=== PATIENT | female | born 1985 | race Caucasian/White ===

== ENCOUNTER → 2017-11-13 10:26 | Outpatient (CLI) | payer BC, SELFPAY ==
[2017-11-13 11:09] LABS: Basophils # 0.1 K/mm3 (0-0.2); Basophils % 0.9 % (0.1-2.0); Eosinophils # 0.1 K/mm3 (0.0-0.4); Hematocrit 44.3 % (37.0-47.0); Hemoglobin 14.3 g/dL (12.2-16.2); Lymphocytes # 1.5 K/mm3 (0.7-4.5); Lymphocytes % 21.6 K/mm3 (10-50); Mean Corpuscular HGB Conc 32.2 g/dL (31.8-35.4); Mean Corpuscular Volume 93.3 fl (81-99); Mean Platelet Volume 7.4 fl (7.4-10.4); Monocytes # 0.4 K/mm3 (0.1-1.0); Monocytes % 5.3 % (1.7-9.3); Neutrophils % 71.1 % (37.0-80.0); Platelet Count 374 K/mm3 (142-424); Red Blood Count 4.75 M/mm3 (4.20-5.40); Red Cell Distribution Width 13.2 % (11.5-17.5)
[2017-11-14 10:56] LABS: Hepatitis B Surface Antigen Negative (Negative); Hepatitis C Antibody <0.1 s/co ratio (0.0-0.9); Rapid Plasma Reagin Ab Titer Non Reactive (NonRea<1:1); Rubella Antibodies, IgG 4.44 index (Immune >0.99)
== END ==
PROVIDERS: Family Provider Internal Medicine Adolescent Medicine; PCP Internal Medicine Adolescent Medicine; Visit Provider Nurse Practitioner Obstetrics & Gynecology
DX: Z34.90 Encounter for supervision of normal pregnancy, unspecified, unspecified trimester (principal)
CPT/HCPCS: 85025; 86592; 86762; 86850; 87340; 87380

== ENCOUNTER → 2017-11-20 10:19 | Outpatient (CLI) | payer BC, SELFPAY ==
--- NOTE | 2017-11-20 10:25 | US_ITS ---
US OB transvaginal HISTORY: Evaluate gestational age, early OB ultrasound ITS.REASON: DATES ORDERING PHYSICIAN: Scottie Daniels MD PATIENT AGE: 32 years COMPARISON: None FINDINGS: Uterus is retroverted. There is a gestational sac within the endometrium with a yolk sac noted and a possible 2 mm pole. No heart tones demonstrated at this time. It may be too early to see heart tones. Follow-up recommended. There is a small amount fluid in the cul-de-sac. 1 similar left ovarian cyst noted areas small amount fluid around the right ovary. IMPRESSION: 1. Intrauterine gestational sac with yolk sac and possible small pole measuring 2 mm which would correspond to gestational age of 5 weeks 6 days with an estimated due date of 07/17/2018. This however is questionable. No heart tones demonstrated. Recommend follow-up ultrasound and beta hCG to confirm viability. 2. Small amount of fluid in right adnexa. 12 mm left ovarian cyst.
== END ==
LOC: RAD 10:20
PROVIDERS: Family Provider Internal Medicine Adolescent Medicine; PCP Internal Medicine Adolescent Medicine; Visit Provider Nurse Practitioner Obstetrics & Gynecology
DX: O26.841 Uterine size-date discrepancy, first trimester (principal)
CPT/HCPCS: 76830

== ENCOUNTER → 2017-11-29 13:45 | Outpatient (CLI) | payer BC, SELFPAY ==
--- NOTE | 2017-11-29 13:46 | US_ITS ---
US OB transvaginal HISTORY: Check early gestation, evaluate age and viability ITS.REASON: Recheck Dates ORDERING PHYSICIAN: Scottie Daniels MD PATIENT AGE: 32 years COMPARISON: None FINDINGS: An intrauterine gestational sac is present with a pole with a crown-rump length of 0.65cm correlating to gestational age of 6 weeks 4 days. heart tones are present with an FHR of 122 bpm's. Yolk sac is noted. Adnexa: 1.2 cm left ovarian cyst with bilateral ovarian follicles. Minimal amount fluid in the right adnexa.. IMPRESSION: Live intrauterine gestation with an estimated gestational age of 6 weeks 4 days and estimated due date of 07/21/2018
== END ==
PROVIDERS: Family Provider Internal Medicine Adolescent Medicine; PCP Internal Medicine Adolescent Medicine; Visit Provider Nurse Practitioner Obstetrics & Gynecology
DX: O26.841 Uterine size-date discrepancy, first trimester (principal)
CPT/HCPCS: 76830

== ENCOUNTER → 2019-03-08 11:13 | Outpatient (CLI) | payer BC, SELFPAY ==
--- NOTE | 2019-03-08 11:18 | XR_ITS ---
XR hip LT 2-3V w/pelvis Ordering Physician: Renetta Williamson APRN Patient Age: 33 years: Female HISTORY: ITS.REASON: LT HIP PAIN Recent fall with left hip and knee pain TECHNIQUE: AP and frog-leg view left hip along with AP pelvis. COMPARISON :-17 abdominal series FINDINGS LEFT HIP is intact with no fracture evident. The femoral head and neck appear intact. Hip joint spaces well-maintained bilaterally. Bones well mineralized AP PELVIS:. Single AP view of the pelvis shows fairly symmetrical appearance to the hips. Appearance unchanged since 2017... Hip joint spaces are well-maintained bilaterally. Sacrum, SI joints, iliac bone, pubis unremarkable.. There is a there were bilateral tubal ligation clips on the 2017 exam.- These are no longer evident IMPRESSION: Negative left hip. No acute findings Osseous pelvis intact. Hips intact bilateral
--- NOTE | 2019-03-08 11:18 | XR_ITS ---
XR knee LT 3V Ordering Physician: Renetta Williamson APRN Patient Age: 33 years: Female HISTORY: ITS.REASON: LT KNEE PAIN Recent fall left knee and left hip pain TECHNIQUE: 3 views left knee COMPARISON :None FINDINGS The left knee intact with no fracture nor dislocation. No joint effusion. Bones well mineralized. No lesions. The Slightly prominent medial femoral condyle versus lateral femoral condyle and may merely projectional. With suggestion of subtle more inferior prominence and contour the medial femoral condyle the lateral condyle. Again likely Exaggerated by subtle rotation on the frontal view although could reflect minor anatomical variation Femoral condyles appear smooth with no osteochondral defect. The lateral femoral condyle unremarkable IMPRESSION: ... Left knee intact with no acute findings. No fracture nor dislocation.. No joint effusion Minor comments in text
== END ==
PROVIDERS: PCP Nurse Practitioner Family; Visit Provider Nurse Practitioner Family
DX: M25.562 Pain in left knee (principal); M25.552 Pain in left hip; G89.29 Other chronic pain
CPT/HCPCS: 73502; 73562

== ENCOUNTER 2019-03-29 15:00 | Outpatient (RCR) | payer BC, SELFPAY ==
--- NOTE | 2019-03-20 13:42 | HMH.PTOPEV ---
PT Outpatient Evaluation Rehab PT Outpatient Evaluation Start: 03/20/19 13:05 Freq: Status: Active Protocol: Document 03/20/19 13:31 MERISSALISA (Rec: 03/20/19 13:42 MERISSAWILLIANRENUKA [id number]) Electronically Signed By Jarrett Estevez, PT 03/20/19 13:31 Outpatient Therapy Subjective History Subjective History Patient is a 33 year old female presenting to outpatient PT with reports of sub-acute L Hip/knee pain starting approximately 2 months ago of insidious onset. Most recent diagnostics negative. Knee pain specific to medial/lateral joint line and popliteal fossa. Hip pain specific to anterior hip. Comorbidities include hx of cholecystectomy. Chief Complaint Pain Symptom Type Ache,Sharp,Dull Symptoms Relieved By Rest/Positioning,Prescription Meds Symptoms Aggravated By Sitting,Standing,Bending/ Stooping,Physical Activity, Walking Prior Functional Limitations None Current Functional Limitations Housework,Standing,Sitting, Squatting,Recreation Activity, Walking,Stairs,Bending/ Stooping Symptom Description Intermittent Level of pain today (0-10) 2 Pain scale - at its best (0-10) 0 Pain scale - at its worst (0-10) 6 Hip/Knee Eval Gait Observation General Gait Pattern Observation No Deviations/Normal Assistive Device Assistive Devices None / NA Palpation Tenderness left Knee Palpation Finding Tenderness Knee Palpation Overall Comment L med/lat joint line, popliteal fossa, anterior hip MMT right Hip Strength Reason Not Measured WFL Knee Strength Reason Not Measured WFL left Hip Flexion Strength Grade 4- Good- Hip Abduction Strength Grade 4- Good- Hip Adduction Strength Grade 4- Good- Hip Extension Strength Grade 4- Good- Hip External Rotation Strength Grade 3+ Fair+ Hip Internal Rotation Strength Grade 3+ Fair+ Knee Extension Strength Grade 4- Good- Knee Flexion Strength Grade 4 Good ROM bilateral Hip ROM Reason Not Measured Within Functional Limits Knee ROM Reason Not Measured Within Functional Limits Special Tests Hip Lyndsey Test Positive Left Hip Piriformis Test Positive Left Alberto Test Positive Knee Anterior Drawer Test
== END 2019-03-29 15:05 | disposition home or self-care (01) ==
LOC: PT 15:00
PROVIDERS: Visit Provider Nurse Practitioner Family
DX: M25.562 Pain in left knee (principal); M25.552 Pain in left hip
CPT/HCPCS: 97010; 97014; 97033; 97035; 97110; 97163; G0283

== ENCOUNTER → 2020-05-01 15:32 | Outpatient (CLI) | payer BC, SELFPAY ==
[2020-05-03 11:54] LABS: Covid-19 Nasal PCR Sendout UK DETECTED
== END ==
PROVIDERS: PCP Internal Medicine Adolescent Medicine; Visit Provider Internal Medicine Adolescent Medicine
DX: Z20.828 Contact with and (suspected) exposure to other viral communicable diseases (principal)
CPT/HCPCS: U0003

== ENCOUNTER 2020-05-30 21:04 | Emergency (ER) | payer BC, SELFPAY ==
[2020-05-30 21:19] VITALS: BP 178/109; PULSE 66; RESP 18; TEMP 37.2; O2SAT 97; BMI 26.2
--- NOTE | 2020-05-30 21:33 | CT_ITS ---
PROCEDURE: CT HEAD/BRAIN WO CON CLINICAL INDICATION: dizziness, nausea, some blurred vision COMPARISON: No exams were available for comparison TECHNIQUE: Axial images obtained. All CT scans at the facility use one or more dose reduction, viz: automated exposure control, ma/kV adjustment per patient size (including targeted exams where dose is matched to indication, i.e. head), or iterative reconstruction technique. FINDINGS: No midline shift, mass effect, intracranial hemorrhage, hydrocephalus, or extra-axial fluid collection is evident. The calvarium has an unremarkable appearance. No mastoid effusion. No sinus air-fluid level. IMPRESSION: No acute intracranial finding Dictated by: Dr. Elio Wagoner MD 05/31/2020 09:06 Dr. Elio Wagoner MD in [place] 05/31/2020 09:06
--- NOTE | 2020-05-30 21:33 | ECG_ITS ---
APPROVED REPORT Exam: Resting ECG HR:65 bpm ECG Measurements Heart Rate 65 AXES AL 120 P 30 QRSd 80 QRS 21 QT 400 T 38 QTc 416 <Conclusion> Normal sinus rhythm Normal ECG Electronically signed by : Mich Gottlieb, 05/31/2020 17:23:57
--- NOTE | 2020-05-30 21:33 | XR_ITS ---
PROCEDURE: XR CHEST PORTABLE CLINICAL HISTORY: chest pain COMPARISON: CR CXR CHEST(2 VIEWS-NOT PORTABLE) from 04/02/2015 CR CXR CHEST(2 VIEWS-NOT PORTABLE) from 05/18/2016 CR Chest from 04/28/[address] angio chest from 04/28/2019 FINDINGS: The cardiomediastinal silhouette and pulmonary vascularity are within normal limits. The lungs are clear without infiltrates, suspicious nodules, or pleural effusions. No acute bony abnormalities. IMPRESSION: No acute findings. Dictated by: Dr. Elio Wagoner MD 05/31/2020 09:07 Dr. Elio Wagoner MD in [place] 05/31/2020 09:07
[2020-05-30 21:44] LABS: Basophils % 0.1 % (0.1-2.0); Eosinophils # 0.1 K/mm3 (0.0-0.4); Eosinophils % 0.9 % (0.1-12.0); Hemoglobin 15.3 g/dL (12.2-16.2); Lymphocytes # 1.2 K/mm3 (0.7-4.5); Lymphocytes % 8.8 % (10-50); Mean Corpuscular HGB Conc 33.2 g/dL (31.8-35.4); Mean Corpuscular Hemoglobin 31.3 pg (27.0-31.2); Mean Corpuscular Volume 94.3 fl (81-99); Mean Platelet Volume 7.9 fl (7.4-10.4); Monocytes # 0.4 K/mm3 (0.1-1.0); Monocytes % 2.6 % (1.7-9.3); Neutrophils # 11.8 K/mm3 (1.8-7.8); Neutrophils % 87.6 % (37.0-80.0); Platelet Count 442 K/mm3 (142-424); Red Blood Count 4.88 M/mm3 (4.20-5.40); Red Cell Distribution Width 12.9 % (11.5-17.5); White Blood Count 13.5 K/mm3 (4.8-10.8)
[2020-05-30 21:54] LABS: Anion Gap 17.9 mEq/L (5-15); Blood Urea Nitrogen 10 mg/dl (7-17); Carbon Dioxide 27 mmol/L (22.0-30.0); Chloride 98 mmol/L (98-107); Creatinine Clearance Estimated 121 mL/min (50-200); Potassium 3.9 mmoL/L (3.5-5.1); Sodium 139 mmol/L (136-145)
[2020-05-30 21:55] LABS: Alanine Aminotransferase 14 U/L (12-78); Albumin Level 5.1 g/dl (3.5-5.0); Albumin/Globulin Ratio 1.3 (1.1-1.8); Alkaline Phosphatase 98 U/L (38-126); Aspartate Amino Transferase 30 U/L (14-36); Bilirubin,Total 0.3 mg/dl (0.2-1.3); Calcium 9.9 mg/dl (8.4-10.2); Estimated Glomerular Filt Rate 113 ml/min (>60); GFR (African American) 137 ML/MIN (>60); Globulin 3.8 g/dL (1.3-3.2); Glucose 130 mg/dl (74-100); Total Protein,Serum 8.9 g/dl (6.3-8.2)
[2020-05-30 21:58] LABS: MANUAL DIFFERENTIAL MANUAL DIFFERENTIAL (MANUAL DIFF)
[2020-05-30 22:07] LABS: Troponin I < 0.01 ng/ml (0.00-0.034)
[2020-05-30 22:09] LABS: Lymphocytes % 11 % (10-50); Neutrophils % 85 % (42-76); Platelet Estimate Normal; RBC Morphology Normal; Total Cells Counted 100
[2020-05-30 22:18] VITALS: BP 135/88; PULSE 51; RESP 18; O2SAT 95
--- NOTE | 2020-05-30 23:01 | HMH.EDCP ---
ED Disposition Clinical Impression: Vertigo Chest pain Qualifiers: Chest pain type: unspecified Qualified Code(s): R07.9 - Chest pain, unspecified Disposition: Home, Self-Care Condition on Discharge: Good Instructions: Dizziness, Nonvertigo Additional Instructions: call pcp for follow up Referrals: Jose Guadalupe Patton MD [Primary Care Provider] - - Critical Care Critical Care Time: No Attestation: On 05/30/20, the high probability of a clinically significant, sudden or life threatening deterioration of the following system(s) required my full and direct attention, intervention and personal management. The time I documented below is in addition to time spent performing reported procedures but includes the following listed in this critical care notation. Medical Decision Making - Medical Records Medical records reviewed: Yes: I reviewed the patient's medical records. - Darian Inquiry Pt receiving controlled substance: No Vital Signs: 05/30/20 21:19 05/30/20 22:18 Temperature 99 F Temperature Source Oral Pulse Rate [Right] 66 51 L Respiratory Rate 18 18 Blood Pressure [Right Arm] 178/109 H 135/88 Blood Pressure Mean [Right Arm] 132 103 Blood Pressure Source [Right Arm] Automatic Cuff Blood Pressure Position [Right Arm] Sitting 02 Sat by Pulse Oximetry 97 95 Oxygen Delivery Method Room Air Room Air - Lab Data Lab results reviewed: Yes: I reviewed the patient's lab results. Lab Results 05/30/20 21:17: WBC 13.5 H, RBC 4.88, Hgb 15.3, Hct 46.0, MCV 94.3, MCH 31.3 H, MCHC 33.2, RDW 12.9, Plt Count 442 H, MPV 7.9, Neut % (Auto) 87.6 H, Lymph % (Auto) 8.8 L, Mckinley % (Auto) 2.6, Eos % (Auto) 0.9, Baso % (Auto) 0.1, Neut # (Auto) 11.8 H, Lymph # (Auto) 1.2, Mckinley # (Auto) 0.4, Eos # (Auto) 0.1, Baso # (Auto) 0.0, Total Counted 100, Neutrophils % (Manual) 85 H, Band Neutrophils % 4.0, Lymphocytes % (Manual) 11, Platelet Estimate Normal, RBC Morphology Normal 05/30/20 21:17: Sodium 139, Potassium 3.9, Chloride 98, Carbon Dioxide 27, Anion Gap 17.9 H, BUN 10, Creatinine 0.60, Estimated Creat Clear 121, Estimated GFR 113, Est GFR ( Amer) 137, Glucose 130 H, Calcium 9.9, Total Bilirubin 0.3, AST 30, ALT 14, Alkaline Phosphatase 98, Troponin I < 0.01, Total Protein 8.9 H, Albumin 5.1 H, Globulin 3.8 H, Albumin/Globulin Ratio 1.3 05/30/20 21:17: ESR 6 05/30/20 21:17: C-Reactive Protein 0.6 05/30/20 21:17: SARS-CoV-2 IgG Ab (Rapid) Negative, SARS-CoV-2 IgM Ab (Rapid) Negative 05/30/20 23:06: Urine Color Yellow, Urine Appearance Clear, Urine pH 6.5, Ur Specific [place] 1.010, Urine Protein Negative, Urine Glucose (UA) Negative, Urine Ketones Negative, Urine Blood Negative, Urine Nitrate Negative, Urine Bilirubin Negative, Urine Urobilinogen 0.2, Ur Leukocyte Esterase Negative, Urine WBC Occasional, Ur Squamous Epith Cells 5-10 Result diagrams: 05/30/20 21:17 05/30/20 21:17 Orders (Tests/Meds): ED MEDICATIONS Generic Name Dose Route Start Last Admin Trade Name Freq PRN Reason Stop Dose Admin Sodium Chloride 1,000 mls @ 999 mls/hr 05/30/20 21:45 05/30/20 21:36 Sod Chlor 0.9% 1000ml Bag IV 05/30/20 22:45 999 mls/hr .Q1H1M JAMIL Administration Discontinued Medications Generic Name Dose Route Start Last Admin Trade Name Freq PRN Reason Stop Dose Admin Aspirin 324 mg 05/30/20 21:34 05/30/20 21:36 Aspirin 81mg Chewable Tablet PO 05/30/20 21:35 324 mg ONCE ONE Administration ORDERS Category Date Time Status CT head/brain wo con Stat Cat Scan 05/30/20 21:33 Taken Chest XR -- portable [XR chest portable] Stat Exams 05/30/20 21:33 Taken Drug Screen,Urine Stat Lab 05/30/20 23:06 Received Troponin I Q3H Lab 05/31/20 00:45 Ordered Troponin I Q3H Lab 05/31/20 03:45 Ordered - Radiology Data #1 Image(s): Chest Image Reviewed: Yes I reviewed the patient's radiology image Preliminary Findings: Normal/NAD - CT Data CT Scan: Head Time Received: 23:[address] Reviewed:
[2020-05-30 23:03] LABS: Coronavirus 19 IgG Antibody Negative (Negative); Coronavirus 19 IgM Antibody Negative (Negative)
[2020-05-30 23:04] LABS: Erythrocyte Sedimentation Rate 6 mm/hr (0-20)
[2020-05-30 23:08] LABS: C-Reactive Protein 0.6 mg/L (0-4)
[2020-05-30 23:10] LABS: Microscopic, Urine URINE MICROSCOPIC (MICROSCOPIC)
[2020-05-30 23:12] LABS: Appearance,Urine CLEAR (Clear); Bilirubin,Urine Negative (Negative); Blood, Urine Negative (Negative); Color,Urine YELLOW (Yellow); Glucose,Urine (UA) Negative (Negative); Ketones,Urine Negative (Negative); Leukocyte Esterase,Urine Negative (Negative); Nitrate,Urine Negative (Negative); PH,Urine 6.5 (5.0-8.5); Protein,Urine Negative (Negative); Urobilinogen,Urine 0.2 EU/dl (0.2)
[2020-05-30 23:15] LABS: WBC,Urine Occasional #/hpf (0-3)
[2020-05-30 23:22] LABS: Amphetamine/Metha Screen,Urine Negative ng/ml (<1000)
[2020-05-30 23:23] LABS: Barbiturates Screen,Urine Negative ng/ml (<200); Benzodiazepines Screen,Urine Negative ng/ml (<200)
[2020-05-30 23:24] LABS: Cannabinoid Screen,Urine Negative ng/ml (<50); Cocaine Screen,Urine Negative ng/ml (<300)
[2020-05-30 23:25] LABS: Methadone Screen,Urine Negative ng/ml (<300)
[2020-05-30 23:26] LABS: Opiate Screen,Urine Negative ng/ml (<300); Phencyclidine Screen,Urine Negative ng/ml (<25)
[2020-05-30 23:28] VITALS: BP 132/88; PULSE 87; RESP 18; TEMP 37.3
== END 2020-05-30 23:30 | disposition home or self-care (01) ==
PROVIDERS: Emergency Provider Emergency Medicine; PCP Internal Medicine Adolescent Medicine
DX: R42 Dizziness and giddiness (principal); R07.9 Chest pain, unspecified; K21.9 Gastro-esophageal reflux disease without esophagitis; G43.709 Chronic migraine without aura, not intractable, without status migrainosus; Z87.442 Personal history of urinary calculi
CPT/HCPCS: 70450; 71045; 80053; 80305; 81001; 84484; 85007; 85025; 85651; 86140; 86328; 93005; 93041; 96365; 99284

== ENCOUNTER → 2020-06-01 11:02 | Outpatient (CLI) | payer BC, SELFPAY ==
--- NOTE | 2020-06-01 11:07 | MR_ITS ---
PROCEDURE: MR HEAD/BRAIN WO CON CLINICAL INDICATION: ANISOCORIA, VERTIGO, BILATERL HEADACHES Dizziness and lightheadedness. Headache. Weakness. Difference in pupil size. Heaviness in legs and tingling in fingers. Prior CT 05-30-20 COMPARISON: CT CT HEAD/BRAIN WO CON from 05/30/2020 TECHNIQUE: Routine multiplanar multi echo sequences are performed without gadolinium enhancement. FINDINGS: No midline shift, mass effect, intracranial hemorrhage, or hydrocephalus. No evidence of acute infarction The cerebellopontine angles, cerebellum, and brainstem are unremarkable. There is normal mccain-white matter differentiation with no abnormal white matter signal intensity evident. The pituitary, optic chiasm, corpus callosum, and craniocervical junction have an unremarkable appearance. No mastoid effusion or sinus air-fluid level. IMPRESSION: Negative MRI the brain without Dictated by: Mark Rodríguez MD 06/02/2020 13:12 Mark Rodríguez MD in [place] 06/02/2020 13:12
== END ==
LOC: RAD 11:03
PROVIDERS: PCP Internal Medicine Adolescent Medicine; Visit Provider Internal Medicine Adolescent Medicine
DX: R51 Headache (principal); R42 Dizziness and giddiness; H57.02 Anisocoria
CPT/HCPCS: 70551

== ENCOUNTER → 2020-07-09 14:22 | Outpatient (CLI) | payer BC, SELFPAY ==
--- NOTE | 2020-07-09 14:22 | MR_ITS ---
PROCEDURE: MR ANGIO HEAD WO CON CLINICAL INDICATION: headache, anisocoria, strokelike symptoms HEADACHES WITH STROKE LIKE SYMPTOMS. PRIOR MR 06-01-20 COMPARISON: MR MR HEAD/BRAIN WO CON from 06/01/2020 TECHNIQUE: 3D [id number] images are obtained without contrast with multi slab reformats. FINDINGS: No aneurysm, arteriovenous malformation, or arterial dissection is identified. There is some anatomic variation noted. There is a persistent origin of the left posterior cerebral artery. The anterior inferior cerebral artery is more dominant cyst on the left side and arises more superior than expected on the right side. This is of questionable clinical significance. Single-shot MRV is unremarkable. IMPRESSION: 1. No evidence of aneurysm or arteriovenous malformation or major intracranial occlusive process. 2. Anatomic variance as described above Dictated by: Mark Rodríguez MD 07/11/2020 10:57 Mark Rodríguez MD in [place] 07/11/2020 10:57
== END ==
LOC: RAD 14:22
PROVIDERS: PCP Nurse Practitioner Family; Visit Provider Specialist
DX: G43.709 Chronic migraine without aura, not intractable, without status migrainosus (principal); H57.02 Anisocoria; R29.90 Unspecified symptoms and signs involving the nervous system; R51 Headache
CPT/HCPCS: 70544

== ENCOUNTER → 2020-10-01 13:30 | Outpatient (CLI) | payer OTHER, SELFPAY ==
--- NOTE | 2020-10-01 13:56 | XR_ITS ---
PROCEDURE: XR CHEST 2V CLINICAL HISTORY: DYSPNEA ON EXERTION,COVID 19 COMPARISON: CR CXR CHEST(2 VIEWS-NOT PORTABLE) from 05/18/2016 CR Chest from 04/28/[address] angio chest from 04/28/2019 CR XR CHEST PORTABLE from 05/30/2020 FINDINGS: The cardiomediastinal silhouette and pulmonary vascularity are within normal limits. The lungs are clear without infiltrates, suspicious nodules, or pleural effusions. No acute bony abnormalities. IMPRESSION: No acute findings. Dictated by: Mark Rodríguez MD 10/01/2020 16:43 Mark Rodríguez MD in [place] 10/01/2020 16:43
[2020-10-01 14:11] LABS: Basophils # 0.1 K/mm3 (0-0.2); Basophils % 0.8 % (0.1-2.0); Eosinophils # 0.1 K/mm3 (0.0-0.4); Eosinophils % 1.9 % (0.1-12.0); Hematocrit 44.3 % (37.0-47.0); Hemoglobin 14.4 g/dL (12.2-16.2); Lymphocytes # 1.5 K/mm3 (0.7-4.5); Lymphocytes % 22.3 % (10-50); Mean Corpuscular HGB Conc 32.6 g/dL (31.8-35.4); Mean Corpuscular Hemoglobin 30.8 pg (27.0-31.2); Mean Corpuscular Volume 94.5 fl (81-99); Mean Platelet Volume 7.5 fl (7.4-10.4); Monocytes # 0.3 K/mm3 (0.1-1.0); Monocytes % 4.4 % (1.7-9.3); Neutrophils # 4.8 K/mm3 (1.8-7.8); Neutrophils % 70.5 % (37.0-80.0); Platelet Count 342 K/mm3 (142-424); Red Blood Count 4.69 M/mm3 (4.20-5.40); Red Cell Distribution Width 13.2 % (11.5-17.5); White Blood Count 6.7 K/mm3 (4.8-10.8)
[2020-10-01 14:17] LABS: D-Dimer 0.86 ug/mL (0.15-8.0)
[2020-10-01 15:12] LABS: Chloride 102 mmol/L (98-107); Potassium 4.4 mmoL/L (3.5-5.1); Sodium 137 mmol/L (136-145)
[2020-10-01 15:14] LABS: Alanine Aminotransferase 21 U/L (12-78); Aspartate Amino Transferase 27 U/L (14-36); Blood Urea Nitrogen 10 mg/dl (7-17); Estimated Glomerular Filt Rate 95 ml/min (>60); GFR (African American) 115 ML/MIN (>60)
[2020-10-01 15:15] LABS: Albumin Level 4.8 g/dl (3.5-5.0); Albumin/Globulin Ratio 1.6 (1.1-1.8); Alkaline Phosphatase 93 U/L (38-126); Anion Gap 13.4 mEq/L (5-15); Bilirubin,Total 0.6 mg/dl (0.2-1.3); Calcium 9.5 mg/dl (8.4-10.2); Carbon Dioxide 26 mmol/L (22.0-30.0); Glucose 93 mg/dl (74-100); Total Protein,Serum 7.8 g/dl (6.3-8.2)
== END ==
PROVIDERS: PCP Nurse Practitioner Family; Visit Provider Nurse Practitioner Family
DX: U07.1 COVID-19 (principal); R06.00 Dyspnea, unspecified
CPT/HCPCS: 36415; 71046; 80053; 85025; 85378

== ENCOUNTER → 2021-07-06 15:12 | Outpatient (CLI) | payer BC, SELFPAY | PROVIDERS: Visit Provider Nurse Practitioner Family | DX: R31.9 Hematuria, unspecified (principal) | CPT/HCPCS: 87086 ==

== ENCOUNTER → 2021-10-27 16:19 | Outpatient (CLI) | payer BC, SELFPAY ==
[2021-10-27 16:21] LABS: Microscopic, Urine URINE MICROSCOPIC (MICROSCOPIC)
[2021-10-27 16:46] LABS: Appearance,Urine CLEAR (Clear); Bilirubin,Urine Negative (Negative); Blood, Urine Negative (Negative); Color,Urine YELLOW (Yellow); Glucose,Urine (UA) Negative (Negative); Ketones,Urine Negative (Negative); Leukocyte Esterase,Urine Negative (Negative); Nitrate,Urine Negative (Negative); Protein,Urine Negative (Negative); Urobilinogen,Urine 0.2 EU/dl (0.2)
[2021-10-27 16:55] LABS: Basophils # 0.1 K/mm3 (0-0.2); Basophils % 1.2 % (0.1-2.0); Eosinophils # 0.1 K/mm3 (0.0-0.4); Eosinophils % 1.1 % (0.1-12.0); Hematocrit 43.7 % (37.0-47.0); Mean Corpuscular Hemoglobin 30.2 pg (27.0-31.2); Mean Corpuscular Volume 94.4 fl (81-99); Mean Platelet Volume 7.9 fl (7.4-10.4); Monocytes # 0.4 K/mm3 (0.1-1.0); Monocytes % 5.7 % (1.7-9.3); Neutrophils # 4.8 K/mm3 (1.8-7.8); Platelet Count 397 K/mm3 (142-424); Red Blood Count 4.63 M/mm3 (4.20-5.40); Red Cell Distribution Width 13.3 % (11.5-17.5); White Blood Count 7.4 K/mm3 (4.8-10.8)
[2021-10-27 21:03] LABS: Chloride 99 mmol/L (98-107)
[2021-10-27 21:04] LABS: Potassium 3.8 mmoL/L (3.5-5.1); Sodium 140 mmol/L (136-145)
[2021-10-27 21:06] LABS: Alkaline Phosphatase 62 U/L (38-126); Amylase 54 U/L (30-110); Anion Gap 14.8 mEq/L (5-15); Bilirubin,Total 0.5 mg/dl (0.2-1.3); Blood Urea Nitrogen 11 mg/dl (7-17); Calcium 9.7 mg/dl (8.4-10.2); Carbon Dioxide 30 mmol/L (22.0-30.0); Estimated Glomerular Filt Rate 94 ml/min (>60); GFR (African American) 113 ML/MIN (>60); Glucose 109 mg/dl (74-100)
[2021-10-27 21:07] LABS: Albumin Level 4.9 g/dl (3.5-5.0); Albumin/Globulin Ratio 1.8 (1.1-1.8); Globulin 2.7 g/dL (1.3-3.2); Lipase 67 U/L (23-300); Total Protein,Serum 7.6 g/dl (6.3-8.2)
[2021-10-27 21:08] LABS: Alanine Aminotransferase 14 U/L (12-78); Aspartate Amino Transferase 28 U/L (14-36)
== END ==
PROVIDERS: PCP Internal Medicine Adolescent Medicine; Visit Provider Internal Medicine Adolescent Medicine
DX: R10.31 Right lower quadrant pain (principal); R50.9 Fever, unspecified
CPT/HCPCS: 36415; 80053; 81001; 82150; 83690; 85025

== ENCOUNTER → 2021-10-28 11:19 | Outpatient (CLI) | payer BC, SELFPAY ==
--- NOTE | 2021-10-28 11:23 | CT_ITS ---
FINAL REPORT CLINICAL HISTORY: RLQ PAIN,FEBRILE ILLNESS FINDINGS: CT OF THE ABDOMEN AND PELVIS WITH CONTRAST Axial CT images of the abdomen and pelvis were obtained after the administration of oral and iv contrast. Coronal reformatted images were also obtained and reviewed.This study was performed with techniques to keep radiation doses as low as reasonably achievable (ALARA). Individualized dose reduction techniques using automated exposure control or adjustment of mA and/or kV according to the patient's size were employed. Abdomen: The lung bases are clear. The heart is normal in size. The liver has an unremarkable appearance, without evidence of mass or biliary ductal dilatation. The patient is status post cholecystectomy. The spleen is unremarkable. No adrenal mass is present. The pancreas has an unremarkable appearance. There is an 11 mm left renal cyst. There are small bilateral nonobstructing renal stones. There is no hydronephrosis. The aorta is normal in caliber. There is no free fluid or adenopathy. No mass or abnormal fluid collection is seen. Pelvis: The appendix is normal. There are small right ovarian cysts. There is low-attenuation centered in the uterus of uncertain significance. This could be related to phase of menstrual cycle. The urinary bladder is unremarkable.There is no evidence of bowel obstruction. IMPRESSION: No evidence of acute intra-abdominal process. Small right ovarian cysts. Bilateral nonobstructing renal stones. Reviewed, Interpreted and Dictated by Saji Melendez III, MD Transcribed by Jasmina York Authenticated by Saji Melendez III, MD on 10/28/2021 01:25:[address] [facility]
== END ==
LOC: RAD 11:20
PROVIDERS: PCP Internal Medicine Adolescent Medicine; Visit Provider Internal Medicine Adolescent Medicine
DX: R10.31 Right lower quadrant pain (principal); R50.9 Fever, unspecified
CPT/HCPCS: 74177; Q9967

== ENCOUNTER 2022-02-14 10:14 | Emergency (ER) | payer BC, SELFPAY ==
[2022-02-14 10:54] VITALS: BP 150/99; PULSE 100; RESP 18; TEMP 37; O2SAT 97; BMI 26.2
[2022-02-14 10:57] LABS: UTC Influenza A Antigen Positive (Negative); UTC Influenza B Antigen Negative (Negative)
--- NOTE | 2022-02-14 11:29 | HMH.EDUTC ---
[facility] [place] Clinical Impression: Influenza A Disposition: Home, Self-Care Condition on Discharge: Good Instructions: Influenza, DI for Influenza -- Adult Additional Instructions: Drink plenty of fluids. Take tylenol or ibuprofen for pain or fever. Take the medications as directed. Follow up with your regular doctor. GO TO THE ER FOR ANY WORSENING SYMPTOMS The cough medication (promethazine dm) will make you drowsy, so don't drive or operate heavy machinery after taking it. Prescriptions: Promethazine/Dextromethorphan [Promethazine-Dm Syrup] 5 ml PO Q6HP PRN #240 ml PRN Reason: Cough Transmission Status: Received by [facility] Ondansetron [Zofran 4mg ODT] 4 mg PO Q8HP PRN #20 tab PRN Reason: Nausea Transmission Status: Received by [facility] Oseltamivir Phosphate [Tamiflu 75mg Capsule] 75 mg PO BID #10 cap Transmission Status: Received by [facility] Referrals: Kayla Quintero APRN [Primary Care Provider] - Forms: Work/School Release Time of Disposition: 11:39 Medical Decision Making - Medical Records Medical records reviewed: No: I reviewed the patient's medical records. - Darian Inquiry Pt receiving controlled substance: No Vital Signs: 02/14/22 10:54 02/14/22 11:48 Temperature 98.6 F 98.6 F Temperature Source Oral Pulse Rate 100 H Pulse Rate [Left] 100 H Respiratory Rate 18 18 Blood Pressure 150/99 H Blood Pressure [Right Arm] 150/99 H Blood Pressure Mean [Right Arm] 116 02 Sat by Pulse Oximetry 97 - Lab Data Lab results reviewed: Yes: I reviewed the patient's lab results. Lab Results 02/14/22 10:41: Influenza Type A Ag Positive A, Influenza Type B Ag Negative [facility] [place] - General Stated complaint: fever, congestion, bodyaches Time Seen by Provider: 02/14/22 11:30 Mode of Arrival: Ambulatory Source of Information: Patient Limitations: No Limitations Description of Symptoms (Recalled from Triage Doc. by RN): pt wants to be tested for the flu. on monday her daughter was diagnosed with the flu. HEENT Symptoms (Recalled from RN notes): Yes Resp Symptoms (Recalled from RN notes): Yes Skin Symptoms (Recalled from RN notes): No MS Symptoms (Recalled from RN notes): No Functional Status (Recalled from RN notes): wnl - History of Present Illness Provider Complaint: She c/o chills, fever up to 102, dry cough and body aches. Her daughter has influenza a. - Related Data Home Medications Medication Instructions Recorded Confirmed Sertraline HCl [Zoloft 50mg tablet] 50 mg PO DAILY 05/30/20 02/01/22 [id number] 1 tab PO PRN tab 07/02/20 02/01/22 50 mg-325 mg-40 mg tablet Previous Rx's Medication Instructions Recorded rimegepant 75 mg disintegrating 75 mg PO .COMPLEX PRN #10 tab 01/25/22 tablet fremanezumab-vfrm 225 mg/1.5 mL 225 mg SQ QMONTH #1.5 ml 01/31/22 subcutaneous auto-injector Ondansetron [Zofran 4mg ODT] 4 mg PO Q8HP PRN #20 tab 02/14/22 Oseltamivir Phosphate [Tamiflu 75 mg PO BID #10 cap 02/14/22 75mg Capsule] Promethazine/Dextromethorphan 5 ml PO Q6HP PRN #240 ml 02/14/22 [Promethazine-Dm Syrup] Allergies Allergy/AdvReac Type Severity Reaction Status Date / Time citalopram [From CELEXA] Allergy Mild Verified 02/14/22 10:54 prednisone [PREDNISONE] Allergy Mild Verified 02/14/22 10:54 duloxetine [From CYMBALTA] Allergy Unknown Verified 02/14/22 10:54 levofloxacin [From Levaquin] Allergy Verified 02/14/22 10:54 - Worker's Comp Is this a Worker's Comp case?: No [facility] History - Hepatitis A Screen Attestation statement:: This patient has been screened for Hepatitis A risk factors. I have reviewed the patient's past medical history: Yes Medical History: Reports:: Anxiety, Gastroesophageal Reflux Disease(GERD), Kidney Stones, Migraine, Palpitations, Ulcer Comment: Chest Pain,Constipation,and Bowel Changes Laterality Cases: Bilateral: Other Other James
[2022-02-14 11:48] VITALS: BP 150/99; PULSE 100; RESP 18; TEMP 37
== END 2022-02-14 11:49 | disposition home or self-care (01) ==
PROVIDERS: Emergency Provider Nurse Practitioner Family; PCP Nurse Practitioner Family
DX: J10.1 Influenza due to other identified influenza virus with other respiratory manifestations (principal)
CPT/HCPCS: 87804; 99212; G0463

== ENCOUNTER 2023-08-06 22:58 | Emergency (ER) | payer BC, SELFPAY ==
--- NOTE | 2023-08-06 | ECG_ITS ---
APPROVED REPORT Exam: Resting ECG HR:84 bpm ECG Measurements Heart Rate 84 AXES ID 128 P 67 QRSd 86 QRS 57 QT 345 T 60 QTc 386 Conclusion SINUS RHYTHM MINIMAL ST DEPRESSION [0.025+ mV ST DEPRESSION] BORDERLINE ECG UNCONFIRMED REPORT Electronically signed by : Jose Guadalupe Patton MD 08/07/2023 08:31:08
[2023-08-06 22:59] VITALS: BP 175/107; PULSE 98; RESP 22; TEMP 36.5; O2SAT 100; BMI 51.2
[2023-08-06 23:03] VITALS: PULSE 98
--- NOTE | 2023-08-06 23:13 | CT_ITS ---
PROCEDURE INFORMATION: Exam: CTA Chest With Contrast Exam date and time: 08/06/2023 11:41 PM Age: 37 years old Clinical indication: Pain; Chest pressure; Additional info: Chest pain rad to back, SOA TECHNIQUE: Imaging protocol: Computed tomographic angiography of the chest with contrast. Exam focused on the arteries. 3D rendering (Not supervised by radiologist): MIP and/or 3D reconstructed images were created by the technologist. Radiation optimization: All CT scans at this facility use at least one of these dose optimization techniques: automated exposure control; mA and/or kV adjustment per patient size (includes targeted exams where dose is matched to clinical indication); or iterative reconstruction. Contrast material: ISOVUE; Contrast volume: 70 ml; Contrast route: INTRAVENOUS (IV); REPORTING DATA: Count of CT and Cardiac NM exams in prior 12 months: This patient has received 0 known CTs and 0 known cardiac nuclear medicine studies in the 12 months prior to the current study. COMPARISON: [facility] CT angio chest 04/28/2019 1:01 PM FINDINGS: Pulmonary arteries: Normal. No pulmonary emboli. Aorta: Unremarkable. No aortic aneurysm. No aortic dissection. Lungs: Unremarkable. No consolidation. No masses. Pleural spaces: Unremarkable. No pneumothorax. No pleural effusion. Heart: Unremarkable. No cardiomegaly. No pericardial effusion. Lymph nodes: Unremarkable. No enlarged lymph nodes. Gallbladder and bile ducts: Cholecystectomy. Bones/joints: Unremarkable. No acute fracture. Soft tissues: Unremarkable. IMPRESSION: No CTA evidence of pulmonary embolus.
[2023-08-06 23:20] LABS: Basophils # 0.1 K/mm3 (0-0.2); Basophils % 0.8 % (0.1-2.0); Eosinophils # 0.3 K/mm3 (0.0-0.4); Eosinophils % 3.8 % (0.1-12.0); Hematocrit 42.7 % (37.0-47.0); Hemoglobin 14.6 g/dL (12.2-16.2); Lymphocytes # 2.9 K/mm3 (0.7-4.5); Lymphocytes % 35.3 % (10-50); Mean Corpuscular HGB Conc 34.2 g/dL (31.8-35.4); Mean Corpuscular Hemoglobin 31.9 pg (27.0-31.2); Mean Corpuscular Volume 93.1 fl (81-99); Monocytes # 0.4 K/mm3 (0.1-1.0); Monocytes % 4.8 % (1.7-9.3); Neutrophils # 4.5 K/mm3 (1.8-7.8); Neutrophils % 55.3 % (37.0-80.0); Platelet Count 349 K/mm3 (142-424); Red Blood Count 4.59 M/mm3 (4.20-5.40); Red Cell Distribution Width 13.8 % (11.5-17.5); White Blood Count 8.1 K/mm3 (4.8-10.8)
[2023-08-06 23:21] LABS: Chloride 102 mmol/L (98-107); Sodium 139 mmol/L (136-145)
[2023-08-06 23:22] LABS: Potassium 3.9 mmoL/L (3.5-5.1)
[2023-08-06 23:24] LABS: Alanine Aminotransferase 17 U/L (12-78); Albumin/Globulin Ratio 1.7 (1.1-1.8); Alkaline Phosphatase 59 U/L (38-126); Anion Gap 11.9 mEq/L (5-15); Aspartate Amino Transferase 29 U/L (14-36); Bilirubin,Total 0.3 mg/dl (0.2-1.3); Blood Urea Nitrogen 15 mg/dl (7-17); Carbon Dioxide 29 mmol/L (22.0-30.0); Creatinine Clearance Estimated 64 mL/min (50-200); Estimated Glomerular Filt Rate 80 ml/min (>60); GFR (African American) 97 ML/MIN (>60)
[2023-08-06 23:25] LABS: Calcium 9.5 mg/dl (8.4-10.2); Glucose 106 mg/dl (74-100); HCG Qualitative, Serum Negative (Negative)
[2023-08-06 23:31] VITALS: BP 184/92; PULSE 72; O2SAT 97
[2023-08-06 23:37] LABS: Troponin I < 0.01 ng/ml (0.00-0.034)
[2023-08-06 23:42] LABS: T4 (Thyroxine) 9.4 ug/dl (5.53-11.0)
[2023-08-06 23:45] VITALS: BP 157/93; PULSE 62; O2SAT 100
--- NOTE | 2023-08-06 23:50 | [facility].EDGENADL ---
Discharge Plan Disposition Patient Disposition: Home, Self-Care Condition: Good Prescriptions Prescriptions: New naproxen 500 mg tablet 500 mg PO BID PRN (Reason: pain) Qty: 20 0RF lidocaine [Lidoderm] 5 % adhesive patch,medicated 1 patch topical DAILY Qty: 15 0RF Rx Instructions: leave on most painful area for up to 12 hrs methocarbamol 750 mg tablet 750 mg PO Q8H PRN (Reason: pain) Qty: 20 0RF No Action Ubrelvy 100 mg tablet 100 mg PO ONCE PRN (Reason: headache) Qty: 10 11RF Rx Instructions: Take 1 tablet at onset of headache. May repeat 1 tablet after 2 hours if symptoms persist. Max dose 2 tablets in 24 hours. vilazodone [Viibryd] 20 mg tablet See Rx Instructions PO DAILY 30 Days Qty: 30 1RF Rx Instructions: take 1/2 tablet (10mg) for 8 days; then increase to 1 whole tablet PO daily; must administer with a meal/food Ajovy Autoinjector 225 mg/1.5 mL auto-injector 225 mg SQ QMONTH Qty: 1.5 11RF Referrals Follow up/Referrals: Provider,Referral, MD [Referring] - See instructions Activity Restrictions/Add. Instructions Additional Instructions/Restrictions: You were evaluated in the emergency department today. Please pharmacy picking tech your prescriptions at the pharmacy and take them as needed for symptoms. You may also take Tylenol in addition to these medications. Return to the emergency department for new or worsening symptoms. Follow-up with your primary care provider over the next 3 days. Clinical Impressions Clinical Impression: Acute thoracic back pain, Dyspnea Instructions Patient Instructions: DI for Atypical Chest Pain, DI for Thoracic Back Pain Discharge ED Provider: Christina Diop General Adult HPI General Chief complaint: Chest Pain Stated complaint: Chest Pain Time Seen by Provider: 08/06/23 23:13 Mode of Arrival: Ambulatory Source of Information: Patient Limitations: No Limitations Description of Symptoms (Recalled from ER Triage Doc. by RN): Patient has been having CHest pain since 08/04 and started having shortness of breath about 2230 tonight. History of Present Illness HPI narrative: This patient is a 37-year-old female with a history of migraines and generalized anxiety disorder presenting to the emergency department for evaluation of pain between her shoulder blades, chest pain, and shortness of breath. She states that this started 2 days ago but acutely worsened tonight around 10:30 PM. At this time, she developed shortness of breath. She states that she has had issues with her ribs being out of place in the past that have been adjusted by chiropractor, however this pain is much more severe than anything she is experienced before. She denies any headache, vision changes, numbness, tingling, unilateral weakness, abdominal pain, low back pain, nausea, vomiting, changes in bowel movements, or other concerns. She also denies any recent trauma or injuries. On medical record review, patient does have a history of esophagitis and esophageal spasms. Related Data Previous Rx's Medication Instructions Recorded ubrogepant 100 mg tablet (Ubrelvy) 100 mg PO ONCE PRN headache #10 05/30/23 tabs fremanezumab-vfrm 225 mg/1.5 mL 225 mg (1.5 mL) SQ QMONTH migraine 06/26/23 subcutaneous auto-injector (Ajovy) prevention #1.5 mL vilazodone 20 mg tablet (Viibryd) See Rx Instructions PO DAILY 30 08/01/23 days #30 tabs lidocaine 5 % topical patch 1 patch topical DAILY #15 ea 08/07/23 (Lidoderm) methocarbamol 750 mg tablet 750 mg PO Q8H PRN pain #20 tabs 08/07/23 naproxen 500 mg tablet 500 mg PO BID PRN pain #20 tabs 08/07/23 Allergies Allergy/AdvReac Type Severity Reaction Status Date / Time levofloxacin [From Levaquin] Allergy Verified 05/30/23 14:30 sulfamethoxazole Allergy Verified 08/06/23 23:08 [From Bactrim] trimethoprim [From Bactrim] Allergy Verified 08/06/23 23:08 [facility] Disclaimer: The information contained in this section
[2023-08-06 23:55] LABS: Thyroid Stimulating Hormone 4.41 uIU/mL (0.465-4.68)
[2023-08-07] VITALS: BP 135/96; PULSE 65; O2SAT 97
[2023-08-07 00:15] VITALS: BP 139/91; PULSE 63; O2SAT 97
[2023-08-07 01:33] LABS: Troponin I < 0.01 ng/ml (0.00-0.034)
[2023-08-07 01:48] VITALS: BP 127/77; PULSE 78; RESP 18; TEMP 36.8
== END 2023-08-07 01:49 | disposition home or self-care (01) ==
PROVIDERS: Emergency Provider Emergency Medicine; PCP Nurse Practitioner Family
DX: M54.6 Pain in thoracic spine (principal); R07.9 Chest pain, unspecified; R06.02 Shortness of breath; F41.1 Generalized anxiety disorder; F17.290 Nicotine dependence, other tobacco product, uncomplicated
CPT/HCPCS: 71275; 80053; 84436; 84443; 84484; 84703; 85025; 93005; 96374; 96375; 99284; J0131; J2405; Q9967